=== PATIENT | female | born 1950 | race Caucasian/White ===

== ENCOUNTER 2021-09-05 15:11 | Outpatient (REF) | payer BC, SELFPAY ==
--- NOTE | ~2021-09-05 | MR_ITS ---
MRI OF THE BRAIN WITHOUT IV CONTRAST INDICATION: TBI. Extracranial injury with loss of consciousness. COMPARISON: None available. TECHNIQUE: Multiplanar multisequence MR imaging of the brain was obtained without IV contrast. FINDINGS: There is no hydrocephalus, extra-axial surface collection, or herniation. There is mild chronic microangiopathy. The major flow voids at the skull base are preserved. Volume averaging of vascular tortuosity versus a small aneurysm projecting medially from the right paraclinoid ICA segment into the anterior suprasellar cistern on image 10 of series 8. This can be more definitively assessed with a CTA or MRA of the head. There is no acute infarct on diffusion-weighted imaging. There is no intracranial hemorrhage on the gradient recalled echo acquisition. There is a partially empty sella. The cerebellar tonsils are normally positioned. The cerebellum and brainstem are normal. The craniocervical junction is normal. Osseous marrow signal intensity is homogenous. The visualized soft tissues are unremarkable. Mild sinus mucosal disease. MR/MR head/brain wo con IMPRESSION: - Volume averaging of vascular tortuosity versus a small aneurysm projecting medially from the right paraclinoid ICA segment into the anterior suprasellar cistern on image 10 of series 8. This can be more definitively assessed with a CTA or MRA of the head. - No acute intracranial findings. Mild chronic microangiopathy. Partially empty sella.
== END 2021-09-05 15:12 | disposition home or self-care (01) ==
LOC: HO.MRI 15:11
PROVIDERS: Visit Provider Psychiatry & Neurology Neurology
DX: S06.9X9D Unspecified intracranial injury with loss of consciousness of unspecified duration, subsequent encounter (principal)
CPT/HCPCS: 70551